=== PATIENT | female | born 1960 | race American Indian/Alaskan Native ===

== ENCOUNTER 2017-02-06 08:11 | Emergency (ER) | payer OTHER ==
[2017-02-06 08:16] VITALS: RESP 18; TEMP 98.5; O2SAT 99
[2017-02-06 10:12] VITALS: BP 133/87; PULSE 88
--- NOTE | 2017-02-06 10:51 | RAD ---
HISTORY: r/o infiltrate COMPARISON: No prior. TECHNIQUE: Chest PA and lateral FINDINGS: LUNGS: No active pulmonary disease. PLEURA: No significant pleural effusion identified. No pneumothorax apparent. CARDIOVASCULAR: Normal. OSSEOUS STRUCTURES: No significant abnormalities. VISUALIZED UPPER ABDOMEN: Normal. OTHER FINDINGS: None. IMPRESSION: No active disease.
--- NOTE | 2017-02-06 14:03 | C.PDOC ---
History Of Present Illness Patient is a 56 y/o female who presents to the ED with a complaint of a cough for the last 5 days. Patient admits to whitish phlegm and subjective fever for the last 2 days. Denies nausea, vomiting, recent travel, sick contact, or recurrence of fever today. Patient did not receive flu shot this year. Admtis to trying OTC medications with no relief. Time Seen by Provider: 02/06/17 08:33 Chief Complaint (Nursing): Flu-like Symptoms History Per: Patient History/Exam Limitations: no limitations Onset/Duration Of Symptoms: Days (5 days) Current Symptoms Are (Timing): Still Present Associated Symptoms: Fever, Cough, Sputum. denies: Nausea, Vomiting Recent travel outside of the [place]: No Past Medical History Reviewed: Historical Data, Nursing Documentation, Vital Signs Vital Signs: Last Vital Signs Temp 98.5 F 02/06/17 08:15 Pulse 88 02/06/17 10:11 Resp 18 02/06/17 10:11 BP 133/87 02/06/17 10:11 Pulse Ox 99 02/06/17 14:08 - Medical History PMH: No Chronic Diseases Surgical History: No Surg Hx Family History: States: No Known Family Hx - Social History Hx Alcohol Use: No Hx Substance Use: No - Immunization History Hx Tetanus Toxoid Vaccination: No Hx Influenza Vaccination: No Hx Pneumococcal Vaccination: No Review Of Systems Constitutional: Positive for: Fever (absent today ) Respiratory: Positive for: Cough (productive) Gastrointestinal: Negative for: Nausea, Vomiting Physical Exam - Physical Exam Appears: Well, Non-toxic, No Acute Distress Skin: Normal Color, Warm, Dry Head: Atraumatic, Normacephalic Oral Mucosa: Moist Chest: Symmetrical Cardiovascular: Rhythm Regular, No Murmur Respiratory: Normal Breath Sounds, No Rales, No Rhonchi, No Wheezing Gastrointestinal/Abdominal: Soft, No Tenderness Neurological/Psych: Oriented x3, Normal Speech, Normal Cognition Additional Physical Exam Comments: bilateral tenderness to maxillary sinuses. ED Course And Treatment O2 Sat by Pulse Oximetry: 99 (room air) Pulse Ox Interpretation: Normal Disposition - [facility] - Disposition: HOME/ ROUTINE Disposition Time: 09:15 Condition: GOOD Additional Instructions: Thank you for letting us take care of you today. The emergency medical care you received today was directed at your acute symptoms. If you were prescribed any medication, please fill it and take as directed. It may take several days for your symptoms to resolve. Return to the Emergency Department if your symptoms worsen, do not improve, or if you have any other problems. Please contact your doctor or call one of the physicians/clinics you have been referred to that are listed on the Patient Visit Information form that is included in your discharge packet. Bring any paperwork you were given at discharge with you along with any medications you are taking to your follow up visit. Our treatment cannot replace ongoing medical care by a primary care provider (PCP) outside of the emergency department. Thank you for allowing the [facility] [place] [facility] team to be part of your care today. Follow up with your doctor in 3-4 days for re-evaluation and further management. Prescriptions: Azithromycin [Zithromax] 250 mg PO DAILY #6 tab Benzonatate [Tessalon Perle] 100 mg PO Q8 PRN #20 capsule PRN Reason: Cough Instructions: Sinusitis (ED) Forms: [facility] (Irish) - Clinical Impression Clinical Impression: Sinusitis - Scribe Statement The provider has reviewed the documentation as recorded by the Scribe Myla Ball All medical record entries made by the Scribe were at my direction and personally dictated by me. I have reviewed the chart and agree that the record accurately reflects my personal performance of the history, physical exam, medical decision making, and the department course for this patient. I have also personally directed, reviewed, and agree with the discharge instructions and disposition.
== END 2017-02-06 10:12 | disposition home or self-care (01) ==
LOC: C.ER 08:11
DX: J32.9 Chronic sinusitis, unspecified (principal)

== ENCOUNTER 2018-05-27 08:20 | Emergency (ER) | payer OTHER ==
[2018-05-27 08:27] VITALS: TEMP 98
--- NOTE | 2018-05-27 09:25 | C.PDOC ---
History Of Present Illness 57 year old female presents to the Emergency Department complaining of cough and congestion, with some white sputum production for the past week. Patient also reports developing right lower rib pain since yesterday. Pain is worse with movement, deep inspiration, and coughing. She reports taking OTC cough medication without relief. Patient denies any fever, neck pain or stiffness, SOB, chest pain, nausea, vomiting, or diarrhea. Time Seen by Provider: 05/27/18 08:38 Chief Complaint (Nursing): Cough, Cold, Congestion History Per: Patient History/Exam Limitations: no limitations Onset/Duration Of Symptoms: Days Current Symptoms Are (Timing): Still Present Associated Symptoms: Cough, Sputum, Nasal Congestion Past Medical History Reviewed: Historical Data, Nursing Documentation, Vital Signs Vital Signs: Last Vital Signs Temp 98 F 05/27/18 08:23 Pulse 78 05/27/18 08:23 Resp 18 05/27/18 08:23 BP 115/73 05/27/18 08:23 Pulse Ox 99 05/27/18 08:23 - Medical History PMH: Hypercholesterolemia Family History: States: No Known Family Hx - Social History Hx Alcohol Use: Yes Hx Substance Use: No - Immunization History Hx Tetanus Toxoid Vaccination: No Hx Influenza Vaccination: No Hx Pneumococcal Vaccination: No Review Of Systems Constitutional: Negative for: Fever, Chills ENT: Positive for: Nose Congestion Cardiovascular: Negative for: Chest Pain Respiratory: Positive for: Cough, Sputum. Negative for: Shortness of Breath Gastrointestinal: Negative for: Nausea, Vomiting, Abdominal Pain, Diarrhea Musculoskeletal: Negative for: Neck Pain Neurological: Negative for: Weakness, Dizziness Physical Exam - Physical Exam Appears: Well, Non-toxic, No Acute Distress Skin: Warm, Dry, No Rash Head: Atraumatic, Normacephalic Eye(s): bilateral: Normal Inspection Oral Mucosa: Moist Neck: Normal ROM Chest: Symmetrical, Tenderness (Mild tenderness to right anterior 8th rib), Other (No rash or skin changes) Cardiovascular: Rhythm Regular, No Murmur Respiratory: No Rales, No Rhonchi, No Wheezing, Other (Lungs clear bilaterally) Gastrointestinal/Abdominal: Soft, No Tenderness, No Distention Extremity: Bilateral: Atraumatic, Normal Color And Temperature, Normal ROM Neurological/Psych: Oriented x3, Normal Speech Gait: Steady ED Course And Treatment ECG: Interpreted By Me, Viewed By Me ECG Rhythm: Sinus Rhythm ECG Interpretation: Normal Rate From EC O2 Sat by Pulse Oximetry: 99 (RA) Pulse Ox Interpretation: Normal - Radiology CXR: Interpreted by Me CXR Interpretation: Yes: No Acute Disease. No: Infiltrates Medical Decision Making Medical Decision Making: Impression: URI, r/o pneumonia Plan: - EKG - Chest x-ray CXR reviewed by me, and shows no acute disease. EKG is normal. Patient remained afebrile alert and oriented with stable vital signs during ER evaluation. Patient reassured regarding normal findings. Counseled regarding diagnosis of URI and discharge plan. Patient feels comfortable going home and will be discharged. Patient given follow up instructions. Instructed to return to ER if symptoms worsen or new symptoms arise. Disposition Counseled Patient/Family Regarding: Diagnosis, Need For Followup, Rx Given - Disposition Disposition: HOME/ ROUTINE Disposition Time: 09:25 Condition: GOOD Additional Instructions: Take Zithromax for 5 days Take cough medicine as needed every 8 hours Follow up with your doctor Prescriptions: Azithromycin [Zithromax] 250 mg PO DAILY #6 tab Promethazine DM [Phenergan DM Syrup] 5 ml PO Q8 PRN #3 oz PRN Reason: Cough Instructions: Upper Respiratory Infection (ED) Forms: [facility] (Telugu) - POA Present On Arrival: None - Clinical Impression Clinical Impression: Upper respiratory infection - PA / [employer] / Resident Statement MD/DO has reviewed & agrees with the documentation as recorded. - Scribe Statement The provider has reviewed the documentation as recorded by the Dimitris Nguyen All medical record entries made by the Seemaibshreya were at my direction and personally dictated by me. I have reviewed the chart and agree that the record accurately reflects my personal performance of the history, physical exam, medical decision making, and the department course for this patient. I have also personally directed, reviewed, and agree with the discharge instructions and disposition.
--- NOTE | 2018-05-27 09:48 | RAD ---
Date of service: 05/27/2018 HISTORY: cough COMPARISON: 02/06/2017. TECHNIQUE: Chest PA and lateral views FINDINGS: LUNGS: No active pulmonary disease. PLEURA: No significant pleural effusion identified. No pneumothorax apparent. CARDIOVASCULAR: No aortic atherosclerotic calcification present. Normal cardiac size. No pulmonary vascular congestion. OSSEOUS STRUCTURES: No significant abnormalities. VISUALIZED UPPER ABDOMEN: Normal. OTHER FINDINGS: None. IMPRESSION: No active disease. No significant interval change compared to the prior examination(s). Concordant results with the preliminary interpretation rendered by the emergency department physician procedure.
[2018-05-27 09:52] VITALS: BP 123/87; PULSE 80; RESP 20
[2018-05-27 10:19] VITALS: O2SAT 99
== END 2018-05-27 09:52 | disposition home or self-care (01) ==
LOC: C.ER 08:20
DX: J06.9 Acute upper respiratory infection, unspecified (principal); F17.210 Nicotine dependence, cigarettes, uncomplicated